=== PATIENT | male | born 1995 | race African-American/Black ===

== ENCOUNTER 2019-05-12 21:05 | Emergency (ER) | payer BC ==
[~2019-05-12] VITALS: Ht 180.3 cm; Wt 139.5 kg
[2019-05-12 21:32] VITALS: Ht 180.3 cm; Wt 139.5 kg
[2019-05-12] MEDS ORDERED: OMEPRAZOLE40 MG PO (23:07)
[2019-05-12 23:23] VITALS: BP 141/85
--- NOTE | 2019-05-13 02:23 | NUR ---
DR PLATT NOTIFIED AND REVIEWED PT's BEHAVIOR AND ASSESSMENT RESULTS, PT IS A LOW RISK PER DR PLATT, DR PLATT STATED TO GIVE RESOURCES TO PT AT TIME OF DISCHARGE. NO FURTHER ORDERS AT THIS TIME. RESOURCES REVIEWED WITH PT AND SHE VERBALIZED UNDERSTANDING.
== END 2019-05-12 23:24 | disposition home or self-care (01) ==
LOC: D.ER 21:05
DX: K21.0 Gastro-esophageal reflux disease with esophagitis (principal)